=== PATIENT | female | born 1970 | race Asian ===

== ENCOUNTER → 2017-01-18 | Outpatient (CLI) | payer OTHER ==
[2017-01-18 10:02] LABS: BASO % 0.2 %; BASO ABS # 0.01 K/uL (0-0.2); COMPLETE YES; EOS % 0.9 %; HEMATOCRIT 33.9 % (37-47); IG% 0.2 %; LYMPH % 21.4 %; LYMPH ABS # 1.21 K/uL (1.2-3.4); MEAN CELL VOLUME 86.9 fL (80-100); MEAN CORPUSCULAR HEMOGLOBIN 27.4 pg (25-34); MEAN CORPUSCULAR HGB CONC 31.6 g/dl (32-36); MEAN PLATELET VOLUME 10.6 fL (7.4-10.4); MONO % 7.6 %; NEUT % 69.7 %; PLATELET COUNT 179 K/uL (130-400); WHITE BLOOD COUNT 5.65 K/uL (4.8-10.8)
[2017-01-18 10:34] LABS: ALT/SGPT 18 U/L (12-78); BLOOD UREA NITROGEN 10 mg/dl (7-18); BUN/CREATININE RATIO 19.2 (10-20); CALCIUM 8.8 mg/dl (8.5-10.1); CARBON DIOXIDE 29 mmol/L (21-32); CHLORIDE 104 mmol/L (98-107); CHOLESTEROL 152 mg/dl (0-200); CREATININE 0.53 mg/dl (0.60-1.20); GLUCOSE 78 mg/dl (70-99); SODIUM 141 mmol/L (136-145)
[2017-01-18 10:45] LABS: ALB/GLOB RATIO 1.2 (0.9-2); ALKALINE PHOSPHATASE 53 U/L (45-117); AST/SGOT 13 U/L (15-37); CHOLESTEROL/HDL RATIO 2.4; HDL CHOLESTEROL 64 mg/dl; LDL CHOLESTEROL CALCULATED 71 mg/dl; TRIGLYCERIDES 84 mg/dl (0-150); VERY LOW DENSITY LIPOPROT CALC 17 mg/dl
== END | disposition home or self-care (01) ==
LOC: C.LAB 09:15
PROVIDERS: ATTEND Neuromusculoskeletal Medicine & OMM
DX: Z00.00 Encounter for general adult medical examination without abnormal findings (principal)

== ENCOUNTER → 2017-01-29 | Outpatient (CLI) | payer OTHER ==
[2017-01-29 12:18] LABS: BASO % 0.2 %; BASO ABS # 0.01 K/uL (0-0.2); COMPLETE YES; HEMATOCRIT 35.4 % (37-47); IG% 0.2 %; LYMPH % 30.6 %; LYMPH ABS # 1.58 K/uL (1.2-3.4); MEAN CELL VOLUME 86.1 fL (80-100); MEAN CORPUSCULAR HEMOGLOBIN 27.5 pg (25-34); MEAN CORPUSCULAR HGB CONC 31.9 g/dl (32-36); MEAN PLATELET VOLUME 10.6 fL (7.4-10.4); MONO % 8.1 %; NEUT % 59.9 %; PLATELET COUNT 222 K/uL (130-400); RED BLOOD COUNT 4.11 M/uL (4.2-5.4); WHITE BLOOD COUNT 5.17 K/uL (4.8-10.8)
[2017-01-29 12:50] LABS: TOTAL IRON BINDING CAPACITY 436 mcg/dl (250-450)
== END | disposition home or self-care (01) ==
LOC: C.LAB 10:48
PROVIDERS: ATTEND Neuromusculoskeletal Medicine & OMM
DX: D64.9 Anemia, unspecified (principal)

== ENCOUNTER → 2017-09-21 | Outpatient (CLI) | payer OTHER ==
--- NOTE | 2017-09-21 16:19 | MAMMOGRAPHY REPORT ---
BILATERAL DIGITAL SCREENING MAMMOGRAM TOMOSYNTHESIS WITH CAD: 09/21/2017 CLINICAL HISTORY: Routine screening. Patient has no complaints. TECHNIQUE: The study was acquired using full field digital technology and interpreted from soft copy. Breast tomosynthesis in addition to standard 2D mammography was performed. Current study was also ev aluated with a Computer Aided Detection (CAD) system. COMPARISON: No prior exams were available for comparison. BREAST COMPOSITION: The tissue of both breasts is extremely dense, which lowers the sensitivity of ma mmography. FINDINGS: There is a 9 mm partially circumscribed and obscured mass in the approximate 6:00 middle on e third of the left breast, the partially circumscribed borders are best seen on the tomosynthesis im ages (CC slice 8/59 and MLO slice 14/61), for which additional targeted ultrasound and possible addit ional mammographic views are recommended, although this could represent a cyst. No other suspicious mass, architectural distortion or cluster of microcalcifications is seen bilatera lly. IMPRESSION: ACR BI-RADS CATEGORY 0: INCOMPLETE EVALUATION: NEED ADDITIONAL IMAGING EVALUATION The 9 mm partially circumscribed and obscured in the approximate 6:00 left breast needs additional ev aluation. The patient will be called to schedule an appointment. Some breast cancers are not detected with mammography. A negative mammographic report should not victor hugo y biopsy if a clinically suggestive mass is present. Colleen Ramos M.D. ay/:09/21/2017 15:37:45 Child Development Associate Teacher: Ngozi Yao RT(R)(M)(BD), [facility] letter sent: [facility] 0 BI-RADS Code: ACR BI-RADS Category 0: Incomplete Evaluation: Need Additional Imaging Evaluation
== END | disposition home or self-care (01) ==
LOC: C.MAMM 11:12
PROVIDERS: ATTEND Neuromusculoskeletal Medicine & OMM
DX: Z12.31 Encounter for screening mammogram for malignant neoplasm of breast (principal); N63.20 Unspecified lump in the left breast, unspecified quadrant

== ENCOUNTER → 2017-10-06 | Outpatient (CLI) | payer OTHER ==
--- NOTE | 2017-10-06 11:38 | Discharge Instructions ---
Discharge Instructions Procedure Procedure Date: Oct 06, 2017. Reason for visit: Left Mass. Discharge Discharge Date: Oct 06, 2017. Discharge Diagnosis: post left breast ultrasound guided core biopsy Instructions Activity Recommendations: Additional Limitations (see below) Return to School/Work: no limitations Recommended Home Diet: No Limitations Provider Instructions: ACTIVITY RECOMMENDATIONS: * No lifting, pushing, pulling or exercising the affected side for three days. RETURN TO SCHOOL/WORK: * You may return to work/school after the procedure, but do not perform any strenuous activities for 24 to 48 hours. MEDICATIONS: * Tylenol (two 325 mg) every four to six hours if needed for mild pain (if not allergic to Tylenol). DIET: * Resume previous diet. SPECIAL CARE INSTRUCTIONS: * Keep biopsy site dry for 24 hours. May shower after 24 hours, but do not soak (bathe) incision. May remove Tegaderm (plastic patch) 24 hours after procedure * Leave the steri-strips on for one week. Allow the steri-strips to fall off by themselves. If not off after one week, you may remove them. You may place a Bandaid crosswise over the strips, if desired. * Apply ice 10 minutes on and 10 minutes off as needed. * Wear a bra at bedtime to sleep more comfortably for 2-3 days. * Your referring physician should have the results after approximately 5 to 7 business days. * Call for unusual bleeding, fever, drainage, etc or if you have any questions call [phone] during normal business hours or after hours call Dr Ramos, . FOLLOW UP VISIT: Follow-up with Referring Physician as scheduled. Coral Corral Recommendations: Call your doctor if: * Temperature above 101 degrees * Pain not relieved by pain medicine ordered * There is increased drainage or redness from any incision * You have any unanswered questions or concerns. Your Doctors Instructions noted above were prepared by provider Colleen Ramos. Patient Signature Section: Patient Instructions Signature Page Mariah Crawford Patient (or Guardian) Signature/Date: I have read and understand the instructions given to me by my caregivers. Caregiver/RN/Doctor Signature/Date: The above-named patient and/or guardian has received patient instructions on this date. + Original Patient Signature Page (only) stays with chart. Please make copy for patient.
--- NOTE | 2017-10-06 13:37 | MAMMOGRAPHY REPORT ---
ULTRASOUND OF LEFT BREAST: 10/06/2017 CLINICAL HISTORY: Callback from screening mammogram for partially circumscribed mass in the left 6:00 breast seen on recent screening mammogram. The patient reports she has had prior mammograms in [place] , however, they are not able to be obtained. COMPARISON: Screening mammogram dated 09/21/2017. Findings: Real-time, high-resolution ultrasound was performed of the left breast in the region of the mammographic mass seen on the recent screening mammogram. In the left 5:00 periareolar breast, ther e is an oval circumscribed hypoechoic solid mass which measures 8 x 6 x 8 mm. This corresponds with the mammographic mass. The mass is indeterminant given the solid nature and given no priors to docum ent stability, and therefore ultrasound-guided core needle biopsy is recommended for further evaluati on although this likely represents a fibroadenoma. Adjacent to this is a similar-appearing smaller h ypoechoic mass which measures 6 x 5 mm which likely also represents a fibroadenoma. IMPRESSION: ACR BI-RADS CATEGORY 4: SUSPICIOUS 1. Hypoechoic 8 mm circumscribed mass in the left 5:00 breast on ultrasound, which corresponds with the partially circumscribed mammographic mass. The mass is indeterminate and ultrasound-guided core needle biopsy is recommended for further evaluation, although this likely represents a fibroadenoma. 2. Smaller similar-appearing adjacent 6 mm mass, which likely also represents a fibroadenoma. Manag ement of this mass will be based on the pathology results of the dominant mass. The patient was verbally notified of the results. She will be returning later today for the biopsy. Maine Ballard M.D. ah/:10/06/2017 09:55:50 Environmental Engineer: RT Toño(Baltazar)(M), [facility] BI-RADS Code: ACR BI-RADS Category 4: Suspicious
--- NOTE | 2017-10-06 13:37 | MAMMOGRAPHY REPORT ---
ULTRASOUND GUIDED BIOPSY LEFT BREAST: 10/06/2017 CLINICAL HISTORY: 46-year-old woman presents for biopsy of an 8 mm circumscribed mass in the 5:00 lef t breast detected on baseline screening mammogram. COMPARISON: Comparison is made to exams dated: 10/06/2017 ultrasound and 09/21/2017 mammogram - [facility]. PATIENT CONSENT: Through the use of a Mandarin Cypriot net developer, the medical student on the radiol ogy rotation, Archie Max, the procedure, risks and benefits were discussed with the patient and infor med consent was obtained both verbally and in writing. Specific risks to this procedure include: ble eding, infection, puncture of adjacent structure, nontarget biopsy, sampling error, pain, metal aller gy and medication reaction. PROCEDURE DESCRIPTION: A time out was performed and the left breast was agreed as the site of biopsy. The skin was prepped and draped in the usual sterile fashion. The solid 8 mm circumscribed mass in t he 5:00 left breast was chosen as the target for biopsy. Subcutaneous and intraparenchymal 1% buffere d lidocaine, with and without epinephrine, was administered as local anesthesia. A skin incision was made. Through the incision, four samples were taken with a 14 gauge Achieve biopsy device. A ribbon shaped metallic marker was placed at the biopsy site. Hemostasis was achieved after manual compressio n. The patient tolerated the procedure well and there was no immediate complication. The samples wer e sent to the pathology department in an appropriately labeled container. Postprocedure left CC and ML tomosynthesis images were obtained. There is a new ribbon-shaped biopsy marker clip within the circumscribed mammographic mass in question in the 5:00 to 6:00 anterior left breast. No significant postbiopsy hematoma is seen. IMPRESSION: ULTRASOUND GUIDED BIOPSY 1. Status post ultrasound-guided core biopsy of an 8 mm circumscribed mass in the 5:00 to 6:00 left breast, with ribbon-shaped biopsy marker clip placed at the site. The patient will receive notification of the biopsy results from her referring physician. Colleen Ramos M.D. ay/:10/06/2017 11:59:33 Community Relations Advisor: MARYANA Noguera)(M), [facility]
--- NOTE | 2017-10-06 13:37 | MAMMOGRAPHY REPORT ---
UNILATERAL LEFT DIGITAL DIAGNOSTIC MAMMOGRAM TOMOSYNTHESIS: 10/06/2017 CLINICAL HISTORY: Indeterminate oval circumscribed solid 8.3 mm mass in the 5:00 periareolar left tnavir ast. Patient presents for ultrasound-guided core biopsy. Please refer to the report from left breast ultrasound-guided core biopsy performed at the same time for full detail. IMPRESSION: POST PROCEDURE IMAGING FOR MARKER PLACEMENT Please refer to the report from left breast ultrasound-guided core biopsy performed at the same time for full detail. Some breast cancers are not detected with mammography. A negative mammographic report should not victor hugo y biopsy if a clinically suggestive mass is present. Colleen Ramos M.D. ay/:10/06/2017 11:41:38 Wash Worker: RT Poornima(R)(M), [facility] BI-RADS Code: Post Procedure Imaging For Marker Placement
== END | disposition home or self-care (01) ==
LOC: C.MAMM 09:01
PROVIDERS: ATTEND Neuromusculoskeletal Medicine & OMM
DX: D24.2 Benign neoplasm of left breast (principal)